=== PATIENT | male | born 1990 | race Two or more races ===

== ENCOUNTER 2019-12-13 20:47 | Inpatient (IN) | payer MEDICAID, OTHER ==
[~2019-12-13] VITALS: Ht 177.8 cm; Wt 117.9 kg
[2019-12-13 22:15] LABS: Basophils # (auto) 0 10 ^3/uL (0-0.2); Basophils % (auto) 0.2 % (0.0-2.0); Eosinophils # (auto) 0 10 ^3/uL (0-0.8); Eosinophils % (auto) 0.1 % (0.0-7.0); Hematocrit 42.6 % (41.0-53.0); Hemoglobin 14.2 g/dL (13.5-17.5); Lymphocytes # (auto) 0.9 10 ^3/uL (0.4-5.4); Lymphocytes % (auto) 5.7 % (10.0-50.0); Mean Corpuscular Hemoglobin 28.7 pg (28.0-32.0); Mean Corpuscular Hgb Conc. 33.4 g/dL (32.0-36.0); Monocytes # (auto) 1.2 10 ^3/uL (0-1.3); Monocytes % (auto) 7.5 % (0.0-12.0); Neutrophils # (auto) 14.5 10 ^3/uL (1.6-8.6); Neutrophils % (auto) 86.5 % (37.0-80.0); Nucleated Red Blood Cells % 0.1 %; Platelet Count (auto) 246 10^3/uL (140-450); Red Blood Cells 4.95 10^6/uL (4.5-5.90); Red Cell Distribution Width 13.3 % (11.8-14.3); White Blood Cell 16.7 10^3/uL (4.4-10.8)
[2019-12-13] MEDS ORDERED: MORPHINE SULFATE 4 MG/ML SYR/VIAL IV ONE (22:15)
[2019-12-13] MEDS ORDERED: ONDANSETRON HCL 4 MG/2 ML VIAL IV ONE (22:15)
[2019-12-13] MEDS ORDERED: SODIUM CHLORIDE 0.9% 1,000 ML IV ONE (22:15)
[2019-12-13 22:37] LABS: Albumin 3.7 g/dL (3.4-5.0); Calcium 8.9 mg/dL (8.5-10.1); Potassium 3.4 mmol/L (3.5-5.1)
[2019-12-13 22:41] LABS: BUN/Creatinine Ratio 17.8; Bilirubin, Total 0.8 mg/dL (0.2-1.0); Total Protein 7.7 g/dL (6.4-8.2)
[2019-12-13 23:00] LABS: Amylase 49 U/L (25-115); Lipase 44 U/L (73-393)
[2019-12-14] MEDS ORDERED: SODIUM CHLORIDE 0.9% 1,000 ML IV ONE (00:45)
[2019-12-14 00:50] LABS: Urine WBC None Seen /hpf (0 - 3)
[2019-12-14 00:53] LABS: Urine Bacteria NONE SEEN /hpf (None Seen); Urine Blood Negative /uL (Negative); Urine Mucus FEW (None Seen)
[2019-12-14] MEDS ORDERED: VANCOMYCIN 1GM/250ML 250 ML IV ONE (03:15)
[2019-12-14] MEDS ORDERED: PIPERACILLIN-TAZOB 3.375GM 100 ML IV ONE (03:15)
[2019-12-14] MEDS ORDERED: TEMAZEPAM 15 MG CAP PO PRN (04:30)
[2019-12-14] MEDS ORDERED: HYDROcodone-ACET 5/325MG TAB PO PRN (04:30)
[2019-12-14] MEDS ORDERED: ONDANSETRON HCL 4 MG/2 ML VIAL IV PRN (04:30)
[2019-12-14] MEDS ORDERED: ACETAMINOPHEN 325 MG TAB PO PRN (04:30)
[2019-12-14] MEDS: metroNIDAZOLE 500MG/100ML 100 ML IV SCH ×3 (09:45→22:18)
[2019-12-14] MEDS ORDERED: cefTRIAXone SOD 1,000 MG VL ONE (10:20)
[2019-12-14] MEDS: FAMOTIDINE 20 MG TAB PO SCH ×2 (10:22→22:18)
[2019-12-14] MEDS: cefTRIAXone 1GM/50ML D5W 50 ML IV SCH (10:23)
[2019-12-14] MEDS: D5W/SOD CHL 0.9%/KCL 40MEQ 1,000 ML IV SCH (12:10)
[2019-12-14 20:15] VITALS: BP 116/79
--- NOTE | 2019-12-14 20:15 | NUR ---
MS admit from ER to Covid-19 Unit JANET TAMEZ admitted to tele/MS. Patient oriented to PEYTON BROWNE, primary RN, unit, room, bed, and unit policies regarding patient care and visiting hours. Patient is alert and oriented x4. Patient denies pain or shortness of breath at this time. No sign/symptoms of distress noted or verbalized at this time. Instructed on plan of care and encouraged patient to call for assistance as needed, patient verbalized understanding. Bed is locked in lowest position, side rails x 2 are up, and call light is within reach.
[2019-12-14] MEDS: ASCORBIC ACID 500 MG TAB PO SCH (22:18)
[2019-12-15] MEDS: D5W/SOD CHL 0.9%/KCL 40MEQ 1,000 ML IV SCH (01:26)
[2019-12-15 05:00] VITALS: BP 105/50
--- NOTE | 2019-12-15 05:10 | NUR ---
Stool Sample Stool sample collected and sent to lab via lab.
[2019-12-15] MEDS: metroNIDAZOLE 500MG/100ML 100 ML IV SCH ×2 (05:21→14:00)
[2019-12-15 08:29] LABS: Basophils # (auto) 0 10 ^3/uL (0-0.2); Basophils % (auto) 0.2 % (0.0-2.0); Eosinophils # (auto) 0.1 10 ^3/uL (0-0.8); Eosinophils % (auto) 1.9 % (0.0-7.0); Hematocrit 38.1 % (41.0-53.0); Hemoglobin 12.9 g/dL (13.5-17.5); Lymphocytes % (auto) 32.2 % (10.0-50.0); Mean Corpuscular Hemoglobin 29.2 pg (28.0-32.0); Mean Corpuscular Hgb Conc. 33.8 g/dL (32.0-36.0); Mean Corpuscular Volume 86.3 fL (80.0-100.0); Monocytes # (auto) 0.6 10 ^3/uL (0-1.3); Monocytes % (auto) 9.8 % (0.0-12.0); Neutrophils # (auto) 3.5 10 ^3/uL (1.6-8.6); Neutrophils % (auto) 55.9 % (37.0-80.0); Platelet Count (auto) 218 10^3/uL (140-450); Red Blood Cells 4.41 10^6/uL (4.5-5.90); Red Cell Distribution Width 13.7 % (11.8-14.3); White Blood Cell 6.3 10^3/uL (4.4-10.8)
--- NOTE | 2019-12-15 08:31 | NUR ---
OPENING SHIFT NOTE: PATIENT RESTING IN BED, AWAKE. PATIENT DENIES ANY PAIN OR DISCOMFORT AT THIS TIME. PATIENT WISHES TO GO HOME, HE WAS SUPPOSED TO BE IN [place] OF 12/13 PER PATIENT. PATIENT ALSO STATED, "MY POTASSIUM IS ALWAYS LOW AND I HAVE BEEN TOLD I HAVE GASTRITIS, SO I WANT TO GO HOME BUT I JUST WANT TO MAKE SURE THE DOCTORS SAY IT'S OK." UPDATED ON PLAN OF CARE. CALL LIGHT WITHIN REACH. PATIENT SALINE LOCKED SO HE COULD AMBULATE TO RESTROOM. WILL CONTINUE TO MONITOR.
[2019-12-15 08:53] LABS: Albumin 3.2 g/dL (3.4-5.0); Calcium 8.3 mg/dL (8.5-10.1)
[2019-12-15 08:56] LABS: BUN/Creatinine Ratio 9.6; Bilirubin, Total 0.5 mg/dL (0.2-1.0); Total Protein 6.7 g/dL (6.4-8.2)
[2019-12-15 09:00] VITALS: BP 91/46
[2019-12-15] MEDS: ASCORBIC ACID 500 MG TAB PO SCH (09:14)
[2019-12-15] MEDS: cefTRIAXone 1GM/50ML D5W 50 ML IV SCH (09:14)
[2019-12-15] MEDS: FAMOTIDINE 20 MG TAB PO SCH (09:14)
[2019-12-15] MEDS ORDERED: CHOLECALCIFEROL (VITD3) 2,000 UNIT CAP PO SCH (10:00)
[2019-12-15] MEDS ORDERED: LEVO-28 PO (12:29)
[2019-12-15] MEDS ORDERED: METR500T PO (12:29)
--- NOTE | 2019-12-15 14:22 | NUR ---
DISCHARGE: PATIENT DISCHARGED, ALL EDUCATION MATERIALS AND INSTRUCTIONS GIVEN TO PATIENT. VERBALIZED UNDERSTANDING. IV REMOVED, MANUAL PRESSURE APPLIED. PATIENT ESCORTED OUT TO PRIVATE AUTO WITH ALL BELONGINGS, NO SIGNS OF DISTRESS.
== END 2019-12-15 14:30 | disposition home or self-care (01) | DRG 249 ==
LOC: EDBD 20:47 → ER 20:47 → OVERFLOW 20:48 → EAST 12-14 20:17
PROVIDERS: ADMIT Nurse Practitioner; ATTEND Internal Medicine
DX: A05.9 Bacterial foodborne intoxication, unspecified (principal); D72.829 Elevated white blood cell count, unspecified; D72.810 Lymphocytopenia; E66.9 Obesity, unspecified; E87.6 Hypokalemia; Z20.828 Contact with and (suspected) exposure to other viral communicable diseases; F41.9 Anxiety disorder, unspecified; J45.909 Unspecified asthma, uncomplicated; Z87.442 Personal history of urinary calculi; Z87.11 Personal history of peptic ulcer disease; Z68.37 Body mass index [BMI] 37.0-37.9, adult
CPT/HCPCS: 36415; 74176; 80053; 81001; 82150; 82728; 83605; 83615; 83690; 85025; 85379; 86141; 87040; 87045; 87426; 87427; 96374; 96375; 99291; G0378; J0696; J2405; J2543; J3490